=== PATIENT | male | born 1995 | race Two or more races ===

== ENCOUNTER 2019-07-05 15:00 | Emergency (ER) | payer BC, MEDICAID ==
[~2019-07-05] VITALS: Ht 162.6 cm; Wt 64.0 kg
[2019-07-05] MEDS ORDERED: LIDOcaine 1% w/EPI 1:200,000 injection 10mL vial IM ONE ×2 (15:15→15:45)
[2019-07-05] MEDS ORDERED: TETanus/Pertussis (Acell)/Diphther VAC/PF (Tdap-Adult) 0.5ml syringe IM ONE (15:15)
[2019-07-05] MEDS ORDERED: LIDOcaine 1% W/epiNEPHrine 1:100,000 20ml vial IJ ONE ×2 (15:20→15:50)
[2019-07-05 17:45] VITALS: BP 99/43
== END 2019-07-05 17:35 | disposition home or self-care (01) ==
LOC: ER 15:01
DX: S41.111A Laceration without foreign body of right upper arm, initial encounter (principal); F17.200 Nicotine dependence, unspecified, uncomplicated; W45.8XXA Other foreign body or object entering through skin, initial encounter; Y93.39 Activity, other involving climbing, rappelling and jumping off; Y92.89 Other specified places as the place of occurrence of the external cause; Y99.9 Unspecified external cause status
CPT/HCPCS: 12035; 90471; 99284